=== PATIENT | male | born 1965 | race American Indian/Alaskan Native ===

== ENCOUNTER 2018-03-03 19:39 | Emergency (ER) | payer MEDICAID ==
[2018-03-03 20:14] VITALS: BMI 28.5
[2018-03-03 20:16] VITALS: RESP 18; TEMP 98.5
--- NOTE | 2018-03-03 20:17 | ED PDOC ---
Arrival/HPI - General Time Seen by Provider: 03/03/18 20:15 Historian: Patient - History of Present Illness Narrative History of Present Illness (Text): you were treated in the ED today for hx of deep vein clot in the past and completed eliquis therapy and now with coughing/chest congestion and chest pain with coughing but otherwise without any nausea/vomiting/headache/dizziness/ difficulty breathing/chest pain/abdomen pain/numbness/tingling/loss of limb function/pain with urination. Quality: Other (no pain) Activities at Onset: Rest Context: Sitting Past Medical History - Provider Review Nursing Documentation Reviewed: Yes - Travel History Have you recently traveled outside [place] w/in the past 3 mons?: No Family/Social History - Physician Review Nursing Documentation Reviewed: Yes Family/Social History: No Known Family HX Allergies/Home Meds Allergies/Adverse Reactions: Allergies No Known Allergies Allergy (Verified 03/03/18 20:17) Review of Systems - Review of Systems Constitutional: Normal Eyes: Normal ENT: Rhinorrhea Respiratory: Cough Cardiovascular: Normal Gastrointestinal: Normal Genitourinary Male: Normal Musculoskeletal: Normal Skin: Normal Neurological: Normal Endocrine: Normal Hemo/Lymphatic: Normal Psychiatric: Normal Physical Exam Vital Signs Reviewed: Yes Vital Signs Temp Pulse Resp BP Pulse Ox 03/03/18 20:14 98.5 F 82 18 139/87 97 Temperature: Afebrile Blood Pressure: Hypertensive Pulse: Regular Respiratory Rate: Normal Appearance: Positive for: Well-Appearing, Non-Toxic, Comfortable Pain Distress: None Mental Status: Positive for: Alert and Oriented X 3 - Systems Exam Head: Present: Atraumatic, Normocephalic Pupils: Present: PERRL Extroacular Muscles: Present: EOMI Conjunctiva: Present: Normal Ears: Present: Normal Mouth: Present: Moist Mucous Membranes Pharnyx: Present: Normal Nose (External): Present: Atraumatic Nose (Internal): Present: Boggy Neck: Present: Normal Range of Motion Respiratory/Chest: Present: Clear to Auscultation, Good Air Exchange Cardiovascular: Present: Regular Rate and Rhythm Abdomen: No: Tenderness, Distention, Normal Bowel Sounds, Peritoneal Signs, Rebound, Guarding, McBurney's Point Tender, Rovsing's Sign Present, Hernias, Feeding Tubes, Ostomy Tubes, Mass/Organomegaly, Scars, Other Back: Present: Normal Inspection Upper Extremity: Present: Normal Inspection Lower Extremity: Present: Normal Inspection Neurological: Present: GCS=15, CN II-XII Intact, Speech Normal, Motor Func Grossly Intact Skin: Present: Warm, Normal Color Psychiatric: Present: Alert, Oriented x 3, Normal Insight, Normal Concentration Medical Decision Making ED Course and Treatment: you were treated in the ED today for hx of deep vein clot in the past and completed eliquis therapy and now with coughing/chest congestion and chest pain with coughing but otherwise without any nausea/vomiting/headache/dizziness/ difficulty breathing/chest pain/abdomen pain/numbness/tingling/loss of limb function/pain with urination. You were otherwise breathing easily, smiling and talking easily_, good strength/sensation, walking easily, clear lungs, no abdomen tenderness, no fever temp 98.5, stable heart rate 82, stable breathing rate 18, excellent oxygen level 97% room air, elevated blood pressure 139/87 which we recommend repeat in 2-3 days primary care office to determine further treatment, prednisone done in the ED with improvement, counselled to have lab tests, ECG, radiology imaging, further observation in the hospital but you refused and stated you feel this is a bronchitis and want treatment and wanted to go home. 1. Recommend prednisone as directed for coughing relief. recommend albuterol as directed for coughing/reactive airway relief. 2. Recommend if persistent cough or change in sputum in 3-5 days then start azithromycin as directed for infection control. 3. Recommend follow-up primary care 1-2 days to review symptoms, referral to pulmonary and cardiology clinic to review your symptoms. 4. If any worsening pain, fever, chills, nausea, vomiting, difficulty breathing, numbness, loss of limb function, pain with urination or any medical condition then return to the ED. 03/03/18 20:39 Reassessment Condition: Re-examined, Improved - RAD Interpretation Radiology Orders: 03/03/18 20:32 CHEST PORTABLE [RAD] Stat - Medication Orders Current Medication Orders: Aspirin (Aspirin) 325 mg PO STAT STA Stop: 03/03/18 20:32 Prednisone (Prednisone Tab) 60 mg PO STAT ONE Stop: 03/03/18 20:34 Disposition/Present on Arrival - Present on Arrival Any Indicators Present on Arrival: Yes - Disposition Have Diagnosis and Disposition been Completed?: Yes Diagnosis: Bronchitis Disposition: AGAINST MEDICAL ADVICE Disposition Time: 20:40 Condition: IMPROVED Discharge Instructions (ExitCare): Acute Bronchitis, Adult (DC) Additional Instructions: ou were treated in the ED today for hx of deep vein clot in the past and completed eliquis therapy and now with coughing/chest congestion and chest pain with coughing but otherwise without any nausea/vomiting/headache/dizziness/ difficulty breathing/chest pain/abdomen pain/numbness/tingling/loss of limb function/pain with urination. You were otherwise breathing easily, smiling and talking easily_, good strength/sensation, walking easily, clear lungs, no abdomen tenderness, no fever temp 98.5, stable heart rate 82, stable breathing rate 18, excellent oxygen level 97% room air, elevated blood pressure 139/87 which we recommend repeat in 2-3 days primary care office to determine further treatment, prednisone done in the ED with improvement, counselled to have lab tests, ECG, radiology imaging, further observation in the hospital but you refused and stated you feel this is a bronchitis and want treatment and wanted to go home. 1. Recommend prednisone as directed for coughing relief. recommend albuterol as directed for coughing/reactive airway relief. 2. Recommend if persistent cough or change in sputum in 3-5 days then start azithromycin as directed for infection control. 3. Recommend follow-up primary care 1-2 days to review symptoms, referral to pulmonary and cardiology clinic to review your symptoms. 4. If any worsening pain, fever, chills, nausea, vomiting, difficulty breathing, numbness, loss of limb function, pain with urination or any medical condition then return to the ED. Prescriptions: Albuterol Sulfate [Proair Hfa] 200 puff IH Q4 PRN 5 Days #1 each PRN Reason: breathing relief Azithromycin [Z-Jim] 250 mg PO DAILY 5 Days #6 tab predniSONE [Prednisone] 20 mg PO DAILY 5 Days #5 tab Forms: WORK NOTE
[2018-03-03 20:55] VITALS: BP 147/87; PULSE 79; O2SAT 98
--- NOTE | 2018-03-04 08:30 | RAD ---
HISTORY: 53 yo, coughing COMPARISON: No prior. FINDINGS: LUNGS: The interstitial markings are slightly increased and coarsened ; rule out sequela of reactive/inflammatory airway disease or viral illness. Suspect minor bibasilar atelectasis. PLEURA: No significant pleural effusion identified, no pneumothorax apparent. CARDIOVASCULAR: Normal. OSSEOUS STRUCTURES: No significant abnormalities. VISUALIZED UPPER ABDOMEN: Normal. OTHER FINDINGS: None. IMPRESSION: The interstitial markings are slightly increased and coarsened ; rule out sequela of reactive/inflammatory airway disease or viral illness. Suspect minor bibasilar atelectasis.
== END 2018-03-03 20:40 | disposition left against medical advice (07) ==
LOC: ED 19:39 → MERGE 19:39 → ED 20:40
DX: J20.9 Acute bronchitis, unspecified (principal)

== ENCOUNTER 2018-04-14 15:34 | Emergency (ER) | payer MEDICAID ==
[2018-04-14 15:35] VITALS: BMI 28.5
[2018-04-14 15:55] VITALS: RESP 18; TEMP 98.4
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
[2018-04-14 17:44] LABS: BASO # 0.04 K/mm3 (0.0-2.0); BASO % 0.7 % (0.0-3.0); EOS # 0.4 (0.0-0.7); GRAN # 2.72 (1.4-6.5); GRAN % 46.6 % (50.0-68.0); HEMOGLOBIN 12.9 g/dL (14.0-18.0); LYMPH # 2.4 (1.2-3.4); LYMPH % 40.2 % (22.0-35.0); MEAN CELL VOLUME 73.3 fl (80.0-105.0); MEAN CORPUSCULAR HEMOGLOBIN 24.2 pg (25.0-35.0); MEAN CORPUSCULAR HGB CONC 33.1 g/dl (31.0-37.0); MEAN PLATELET VOLUME 10.2 fl (7.0-11.0); MONO # 0.4 (0.1-0.6); MONO % 6.5 % (1.0-6.0); RBC 5.32 10^6/uL (3.5-6.1); RED CELL DISTRIBUTION WIDTH 14.6 % (11.5-14.5); WHITE BLOOD COUNT 5.8 10^3/ul (4.5-11.0)
--- NOTE | 2018-04-14 17:51 | CT ---
PROCEDURE: CT scan abdomen pelvis dated 04/14/2018. HISTORY: Left lower quadrant pain and CVA tender COMPARISON: No prior study available comparison heart size is upper limits TECHNIQUE: Contiguous axial images of the abdomen and pelvis without oral or intravenous contrast material. Additional 2D sagittal and coronal reformats generated. Show This CT exam was performed using one or more of the following dose reduction techniques: Automated exposure control, adjustment of the mA and/or kV according to patient size, and/or use of iterative reconstruction technique. Radiation dose: Total exam DLP = 929.38 mGy-cm. FINDINGS: LOWER THORAX: Heart size is borderline slightly enlarged. No significant pericardial effusion. . There is a small hiatal hernia with slight wall thickening of the distal esophagus likely due to protrusion of gastric mucosa. LIVER: Evaluation of the liver parenchyma slightly limited due to streak and beam hardening artifact arising from the upper extremities which have not been moved from the field of view GALLBLADDER AND BILE DUCTS: Gallbladder incompletely distended likely due to nonfasting state. PANCREAS: Unremarkable. No mass. No ductal dilatation. SPLEEN: Unremarkable. No splenomegaly. ADRENALS: No adrenal lesions. KIDNEYS AND URETERS: Kidneys demonstrate relatively symmetric size. No definitive radiographic evidence of nephrolithiasis or hydronephrosis. BLADDER: Urinary bladder is incompletely distended. REPRODUCTIVE: Prostate gland measures approximately 4.1 cm in transverse dimension. APPENDIX: Normal-appearing appendix best seen on axial image number [id number]. No periappendiceal inflammatory changes BOWEL: Evaluation of the bowel is slightly limited due to the lack of oral contrast material. The stomach is partially distended with food debris liquid and air. Visualized loops of small bowel exhibit normal contour and caliber. No evidence of acute mechanical small bowel obstruction. Stool and air seen throughout the large bowel. There appears to be a few scattered colonic diverticula along the sigmoid colon. No definitive radiographic evidence of acute diverticulitis. PERITONEUM: Unremarkable. No fluid collection. No free air. LYMPH NODES: Unremarkable. No enlarged lymph nodes. VASCULATURE: Unremarkable. No aortic aneurysm. BONES: Mild multilevel degenerative spondylosis of the lower thoracic and lumbar spine No acute compression fractures nor retropulsed fragments. OTHER FINDINGS: None. IMPRESSION: No acute intra abdominal pathology as described.
--- NOTE | 2018-04-14 17:51 | CT ---
PROCEDURE: CT HEAD WITHOUT CONTRAST. HISTORY: Headache COMPARISON: None available. TECHNIQUE: Axial computed tomography images were obtained through the head/brain without intravenous contrast. Radiation dose: Total exam DLP = 924.35 mGy-cm. This CT exam was performed using one or more of the following dose reduction techniques: Automated exposure control, adjustment of the mA and/or kV according to patient size, and/or use of iterative reconstruction technique. FINDINGS: HEMORRHAGE: No acute parenchymal, subarachnoid or extra-axial hemorrhage. BRAIN: There is a bulbous appearance of the basilar tip artery which may be due to ectasia and tortuosity however the possibility of a basilar tip aneurysm not excluded. Followup CTA of the brain recommended. Mild generalized volume loss. The the VENTRICLES: No obstructive hydrocephalus. CALVARIUM: Unremarkable. PARANASAL SINUSES: Mild moderate mucosal thickening within the ethmoid air complex. There is also mild mucosal thickening within the inferolateral aspect right chamber sphenoid sinus. Minimal mucosal thickening both maxillary antra. MASTOID AIR CELLS: Unremarkable as visualized. No inflammatory changes. OTHER FINDINGS: None. IMPRESSION: No acute intracranial hemorrhage. Bulbous appearing basilar tip likely due to ectasia and tortuosity however the possibility of a basilar tip aneurysm not excluded. Follow-up CTA of the brain recommended.
[2018-04-14 17:54] LABS: ALB/GLOB RATIO 1.3 (1.1-1.8); ALBUMIN 3.6 g/dL (3.0-4.8); ALT/SGPT 34 U/L (7-56); AST/SGOT 30 U/L (17-59); BLOOD UREA NITROGEN 15 mg/dL (7-21); CALCIUM 9.1 mg/dL (8.4-10.5); GFR AFRICAN-AMERICAN > 60; GFR NON-AFRICAN AMERICAN 58
[2018-04-14] MEDS ORDERED: Morphine 2 mg/ml ISec IVP STA (18:07)
[2018-04-14] MEDS ORDERED: Morphine 2 mg/2 mL syringe IVP STA (18:10)
[2018-04-14 18:25] LABS: URINE BILIRUBIN NEGATIVE (NEGATIVE); URINE BLOOD NEGATIVE (NEGATIVE); URINE GLUCOSE (UA) NEGATIVE (NEGATIVE); URINE LEUKOCYTE ESTERASE NEGATIVE Leu/uL (NEGATIVE); URINE PROTEIN NEGATIVE mg/dL (<30 mg/dL)
[2018-04-14 18:30] LABS: URINE APPEARANCE CLEAR (CLEAR); URINE COLOR YELLOW (YELLOW)
--- NOTE | 2018-04-14 19:09 | CT ---
PROCEDURE: CT Angiography of the neck with contrast HISTORY: Findings on Previous Head CT COMPARISON: None available. TECHNIQUE: Contiguous axial images of the neck were obtained from the level of the skull-base to the superior mediastinum in the arteriographic phase of enhancement. Coronal and sagittal reformats or also generated. IV contrast dose: 146 cc of Omni 350 Radiation Dose - DLP: 691 mGy-cm This CT exam was performed using one or more of the following dose reduction techniques: Automated exposure control, adjustment of the mA and/or kV according to patient size, and/or use of iterative reconstruction technique. FINDINGS: RIGHT CAROTID ARTERIES: Common Carotid Artery: Normal. Carotid Bifurcation: Normal. Internal Carotid Artery:Normal. External Carotid Artery (proximal branches): Normal. LEFT CAROTID ARTERIES: Common Carotid Artery: Normal. Carotid Bifurcation: Normal. Internal Carotid Artery:Normal. External Carotid Artery (proximal branches): Normal. VERTEBRAL ARTERIES: Right Vertebral Artery: Normal. Left Vertebral Artery: Normal. OTHER FINDINGS: None. IMPRESSION: Normal CT Angiography of the neck. CT Angiography of the Brain. HISTORY: Findings on Previous Head CT COMPARISON: None available. TECHNIQUE: CT angiography of the intracranial arteries was performed. Coronal and sagittal maximum intensity projection reformated images were generated. This CT exam was performed using one or more of the following dose reduction techniques: Automated exposure control, adjustment of the mA and/or kV according to patient size, and/or use of iterative reconstruction technique. FINDINGS: INTERNAL CEREBRAL ARTERIES: Unremarkable. The skull base, petrous, cavernous and supraclinoid segments are bilaterally widely patent. ANTERIOR CEREBRAL ARTERIES: Unremarkable. A1 and A2 segments are widely patent. Smaller distal branches unremarkable, as visualized. MIDDLE CEREBRAL ARTERIES: Unremarkable. M1 and M2 segments are widely patent. Perisylvian branches grossly symmetric. POSTERIOR CIRCULATION: Basilar Artery: There is dilatation and tortuosity of the basilar artery but no evidence of a discrete aneurysm Distal Vertebral Arteries: Unremarkable. Posterior Cerebral Arteries: Unremarkable. Posterior Inferior Cerebellar Arteries: Unremarkable. ANEURYSM/ VASCULAR MALFORMATIONS: None. OTHER FINDINGS: None. IMPRESSION: There is dilatation and tortuosity of the basilar artery but no evidence of a discrete aneurysm
[2018-04-14 19:41] VITALS: BP 144/82; PULSE 85
[2018-04-14 19:45] VITALS: O2SAT 100
== END 2018-04-14 19:42 | disposition home or self-care (01) ==
LOC: ED 15:34
DX: J11.1 Influenza due to unidentified influenza virus with other respiratory manifestations (principal); G43.909 Migraine, unspecified, not intractable, without status migrainosus; I10 Essential (primary) hypertension; F17.210 Nicotine dependence, cigarettes, uncomplicated
CPT/HCPCS: 70450; 70496; 70498; 74176; 80053; 81003; 85025; 96374; 96375; 99284; J2270; J2405; Q9967

== ENCOUNTER 2018-05-31 22:49 | Emergency (ER) | payer MEDICAID ==
[2018-05-31 22:49] VITALS: BMI 28.5
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
[2018-06-01 00:26] LABS: BASO # 0.07 K/mm3 (0.0-2.0); BASO % 1.1 % (0.0-3.0); EOS # 0.5 (0.0-0.7); EOS % 7.7 % (1.5-5.0); GRAN # 2.14 (1.4-6.5); GRAN % 33.7 % (50.0-68.0); HEMOGLOBIN 13.1 g/dL (14.0-18.0); LYMPH # 3.2 (1.2-3.4); LYMPH % 50.9 % (22.0-35.0); MEAN CELL VOLUME 72.5 fl (80.0-105.0); MEAN CORPUSCULAR HEMOGLOBIN 24.8 pg (25.0-35.0); MEAN CORPUSCULAR HGB CONC 34.2 g/dl (31.0-37.0); MEAN PLATELET VOLUME 9.6 fl (7.0-11.0); MONO # 0.4 (0.1-0.6); MONO % 6.6 % (1.0-6.0); RBC 5.28 10^6/uL (3.5-6.1); RED CELL DISTRIBUTION WIDTH 15.4 % (11.5-14.5); WHITE BLOOD COUNT 6.4 10^3/ul (4.5-11.0)
[2018-06-01 00:36] LABS: ALB/GLOB RATIO 1.5 (1.1-1.8); ALT/SGPT 41 U/L (7-56); AST/SGOT 33 U/L (17-59); BLOOD UREA NITROGEN 20 mg/dL (7-21); CALCIUM 9.3 mg/dL (8.4-10.5); GFR AFRICAN-AMERICAN > 60; GFR NON-AFRICAN AMERICAN > 60
[2018-06-01 00:47] LABS: TROPONIN I < 0.01 ng/mL
[2018-06-01 01:03] LABS: CK-MB 1.6 ng/mL (0.0-3.6)
[2018-06-01 01:06] VITALS: RESP 16; O2SAT 100
[2018-06-01 02:57] VITALS: BP 135/97; PULSE 75; TEMP 98.3
--- NOTE | 2018-06-01 08:00 | CT ---
Date of service: 06/01/2018 PROCEDURE: CT HEAD WITHOUT CONTRAST. HISTORY: r/o ICH COMPARISON: None available. TECHNIQUE: Axial computed tomography images were obtained through the head/brain without intravenous contrast. Radiation dose: Total exam DLP = 923 mGy-cm. This CT exam was performed using one or more of the following dose reduction techniques: Automated exposure control, adjustment of the mA and/or kV according to patient size, and/or use of iterative reconstruction technique. FINDINGS: HEMORRHAGE: No intracranial hemorrhage. BRAIN: No mass effect or edema. No atrophy or chronic microvascular ischemic changes. VENTRICLES: Unremarkable. No hydrocephalus. CALVARIUM: Unremarkable. PARANASAL SINUSES: Unremarkable as visualized. No significant inflammatory changes. MASTOID AIR CELLS: Unremarkable as visualized. No inflammatory changes. OTHER FINDINGS: The report concurs with the preliminary [facility] report IMPRESSION: No acute findings
--- NOTE | 2018-06-01 10:50 | RAD ---
Date of service: 06/01/2018 HISTORY: r/o infiltrate COMPARISON: 03/03/2018 FINDINGS: LUNGS: No active pulmonary disease. PLEURA: No significant pleural effusion identified, no pneumothorax apparent. CARDIOVASCULAR: Normal. OSSEOUS STRUCTURES: No significant abnormalities. VISUALIZED UPPER ABDOMEN: Normal. OTHER FINDINGS: None. IMPRESSION: No active disease.
--- NOTE | 2018-06-01 16:25 | CARD ---
APPROVED REPORT Date of service: 06/01/2018 EKG Measurement Heart [id number] ND [id number] <Conclusion> Normal sinus rhythm Normal ECG
== END 2018-06-01 02:00 | disposition home or self-care (01) ==
LOC: ED 22:49
DX: I10 Essential (primary) hypertension (principal); F17.210 Nicotine dependence, cigarettes, uncomplicated

== ENCOUNTER 2018-06-13 14:47 | Emergency (ER) | payer MEDICAID ==
[2018-06-13 14:47] VITALS: BMI 28.5
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
[2018-06-13 15:59] LABS: BASO # 0.03 K/mm3 (0.0-2.0); BASO % 0.6 % (0.0-3.0); EOS # 0.3 (0.0-0.7); EOS % 6.3 % (1.5-5.0); GRAN # 2.29 (1.4-6.5); GRAN % 46.3 % (50.0-68.0); HEMOGLOBIN 13.1 g/dL (14.0-18.0); LYMPH % 40.9 % (22.0-35.0); MEAN CELL VOLUME 72.2 fl (80.0-105.0); MEAN CORPUSCULAR HGB CONC 33.2 g/dl (31.0-37.0); MEAN PLATELET VOLUME 9.6 fl (7.0-11.0); MONO # 0.3 (0.1-0.6); MONO % 5.9 % (1.0-6.0); RBC 5.46 10^6/uL (3.5-6.1); RED CELL DISTRIBUTION WIDTH 14.8 % (11.5-14.5); URINE BILIRUBIN NEGATIVE (NEGATIVE); URINE BLOOD NEGATIVE (NEGATIVE); URINE GLUCOSE (UA) NEGATIVE (NEGATIVE); URINE LEUKOCYTE ESTERASE NEGATIVE Leu/uL (NEGATIVE); URINE PROTEIN TRACE mg/dL (<30 mg/dL); URINE UROBILINOGEN 0.2 E.U./dL (<1 E.U./dL); WHITE BLOOD COUNT 4.9 10^3/ul (4.5-11.0)
[2018-06-13 16:03] LABS: URINE APPEARANCE CLEAR (CLEAR); URINE COLOR YELLOW (YELLOW)
[2018-06-13 16:08] LABS: URINE BACTERIA FEW (NEG); URINE RBC NEGATIVE /hpf (0-2)
[2018-06-13 16:12] LABS: ALB/GLOB RATIO 1.5 (1.1-1.8); ALBUMIN 4.2 g/dL (3.0-4.8); ALT/SGPT 46 U/L (7-56); AST/SGOT 57 U/L (17-59); BLOOD UREA NITROGEN 16 mg/dL (7-21); CALCIUM 9.2 mg/dL (8.4-10.5); GFR AFRICAN-AMERICAN > 60; GFR NON-AFRICAN AMERICAN > 60; LIPASE 99 U/L (23-300)
--- NOTE | 2018-06-13 16:36 | CT ---
Date of service: 06/13/2018 PROCEDURE: CT Abdomen and Pelvis without intravenous contrast HISTORY: lower pain COMPARISON: 04/14/2018 TECHNIQUE: Without contrast.. Contrast dose: Radiation dose: Total exam DLP = 440 mGy-cm. This CT exam was performed using one or more of the following dose reduction techniques: Automated exposure control, adjustment of the mA and/or kV according to patient size, and/or use of iterative reconstruction technique. FINDINGS: LOWER THORAX: Unremarkable. LIVER: Unremarkable. No gross lesion or ductal dilatation. GALLBLADDER AND BILE DUCTS: Unremarkable. PANCREAS: Unremarkable. No gross lesion or ductal dilatation. SPLEEN: Unremarkable. ADRENALS: Unremarkable. No mass. KIDNEYS AND URETERS: Unremarkable. No hydronephrosis. No solid mass. VASCULATURE: Unremarkable. No aortic aneurysm. BOWEL: Unremarkable. No obstruction. No gross mural thickening. APPENDIX: Unremarkable. Normal appendix. PERITONEUM: Unremarkable. No free fluid. No free air. LYMPH NODES: Unremarkable. No enlarged lymph nodes. BLADDER: Unremarkable. REPRODUCTIVE: Unremarkable. BONES: No acute fracture. OTHER FINDINGS: None. IMPRESSION: No acute intra-abdominal findings
[2018-06-14 00:16] VITALS: TEMP 98.6; O2SAT 100
[2018-06-14 00:20] VITALS: BP 135/73; PULSE 70; RESP 19
== END 2018-06-13 17:03 | disposition home or self-care (01) ==
LOC: ED 14:47
DX: R10.30 Lower abdominal pain, unspecified (principal); I10 Essential (primary) hypertension; F17.210 Nicotine dependence, cigarettes, uncomplicated

== ENCOUNTER 2018-06-29 12:42 | Emergency (ER) | payer MEDICAID ==
[2018-06-29 12:50] VITALS: BMI 29.2
[2018-06-29 12:53] VITALS: TEMP 98.3
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
--- NOTE | 2018-06-29 13:46 | RAD ---
Date of service: 06/29/2018 PROCEDURE: Right middle finger radiographs. HISTORY: r/o fx COMPARISON: None. TECHNIQUE: AP radiograph of the right hand, as well as spot oblique and lateral images of right middle finger were obtained. FINDINGS: RIGHT MIDDLE FINGER: Right middle finger normal, without acute fracture of focal lesion. Remainder of the right hand (as seen on the AP view) grossly unremarkable. JOINTS: Normal. SOFT TISSUES: Normal. OTHER FINDINGS: None. IMPRESSION: No acute fracture or dislocation.
[2018-06-29 13:59] VITALS: BP 149/87; PULSE 62; RESP 17; O2SAT 98
== END 2018-06-29 14:12 | disposition home or self-care (01) ==
LOC: ED 12:42
DX: M79.644 Pain in right finger(s) (principal)

== ENCOUNTER 2019-01-18 23:37 | Emergency (ER) | payer MEDICAID ==
[2019-01-18 23:37] VITALS: BMI 29.2
[2019-01-18 23:48] VITALS: TEMP 98.2
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
[2019-01-19 01:47] VITALS: BP 146/82; PULSE 77; RESP 19; O2SAT 100
--- NOTE | 2019-01-19 11:01 | RAD ---
Date of service: 01/19/2019 HISTORY: Cough. COMPARISON: 06/01/2018. TECHNIQUE: Chest PA and lateral FINDINGS: LUNGS: No active pulmonary disease. PLEURA: No significant pleural effusion identified. No pneumothorax apparent. CARDIOVASCULAR: No aortic atherosclerotic calcification present. Normal cardiac size. No pulmonary vascular congestion. OSSEOUS STRUCTURES: No significant abnormalities. VISUALIZED UPPER ABDOMEN: Normal. OTHER FINDINGS: None. IMPRESSION: No active disease. No significant interval change compared to the prior examination(s).
== END 2019-01-19 02:18 | disposition home or self-care (01) ==
LOC: ED 23:37
DX: J11.1 Influenza due to unidentified influenza virus with other respiratory manifestations (principal); F17.210 Nicotine dependence, cigarettes, uncomplicated; I10 Essential (primary) hypertension
CPT/HCPCS: 71046; 87070; 87430; 87804; 96372; 99284; J1885